=== PATIENT | male | born 1985 | race Two or more races ===

== ENCOUNTER 2018-06-01 00:14 | Emergency (ER) | payer BC ==
[~2018-06-01] VITALS: Ht 182.9 cm; Wt 86.2 kg
[2018-06-01 00:26] VITALS: BP 141/98
--- NOTE | 2018-06-01 00:33 | Emergency Room Report ---
History of Present Illness General Chief Complaint: Abdominal Pain Source: Patient Present Illness HPI Is a 32-year-old male with no past medical history. He presents with chief complaint of nausea vomiting diarrhea. Onset this afternoon. Vomiting is nonbloody nonbilious. Diarrhea is watery. Onset was acute and was severe. Better now. [place] dehydrated and dizzy. He denies any other complaint. Pain is crampy in nature. Better now. Allergies: Coded Allergies: No Known Allergies (Unverified , 06/01/18) Patient History Past Medical History: none, see triage record, old chart reviewed Past Surgical History: none Pertinent Family History: none Social History: Denies: smoking Immunizations: other Reviewed Nursing Documentation: PMH: Agreed; PSxH: Agreed Nursing Documentation-PMH Past Medical History: No History, Except For Hx Hypertension: Yes Review of Systems Eye: Denies: eye pain, blurred vision ENT: Denies: ear pain, nose congestion, throat swelling Respiratory: Denies: cough, shortness of breath Cardiovascular: Denies: chest pain, palpitations Gastrointestinal: Reports: abdominal pain, diarrhea, nausea, vomiting Musculoskeletal: Denies: back pain, joint pain Skin: Denies: rash Neurological: Denies: headache, numbness Endocrine: Denies: increased thirst, increased urine Hematologic/Lymphatic: Denies: easy bruising All Other Systems: negative except mentioned in HPI Physical Exam Vital Signs Date Time Temp Pulse Resp B/P (MAP) Pulse Ox O2 Delivery O2 Flow Rate FiO2 06/01/18 00:21 99.0 141 16 142/88 95 Room Air vitals with tachycardia. Sp02 EP Interpretation: reviewed, normal General Appearance: well appearing, no apparent distress, alert Head: normocephalic, atraumatic Eyes: bilateral eye PERRL, bilateral eye EOMI ENT: hearing grossly normal, normal pharynx Neck: full range of motion, supple, no meningismus Respiratory: chest non-tender, lungs clear, normal breath sounds Cardiovascular #1: regular rate, rhythm, no murmur, tachycardia - Heart rate 120s Gastrointestinal: normal bowel sounds, non tender, no mass, no organomegaly, no bruit, non-distended Musculoskeletal: back normal, gait/station normal, normal range of motion Psychiatric: mood/affect normal Skin: warm/dry Medical Decision Making Diagnostic Impression: Primary Impression: Abdominal pain Qualified Codes: R10.84 - Generalized abdominal pain Additional Impression: Nausea vomiting and diarrhea ER Course Patient with nausea vomiting and diarrhea. Most likely a gastroenteritis. No evidence of acute abdomen. No evidence of obstruction. Patient is pain-free now. We'll discharge home. Heart rate down to 100 after IV fluid. Lab Results Impression labs unremarkable Last Vital Signs Date Time Temp Pulse Resp B/P (MAP) Pulse Ox O2 Delivery O2 Flow Rate FiO2 06/01/18 00:21 99.0 141 16 142/88 95 Room Air Status: improved Disposition: HOME, SELF-CARE Condition: Stable Scripts Ondansetron (Zofran) 4 Mg Tablet 4 MG ORAL Q6H PRN for Nausea & Vomiting, #5 TAB 0 Refills Prov: Maikol Aldana MD 06/01/18 Additional Instructions: Advance diet as tolerated. Follow-up with your Dr. in 2 to 3 days if not better. Return if worse. Maikol Aldana MD Jun 01, 2018 00:33
[2018-06-01] MEDS ORDERED: Ketorolac 30mg Inj IV ONE (00:45)
[2018-06-01 00:59] LABS: HEMATOCRIT 53.3 % (42.0-52.0); HEMOGLOBIN 17.9 G/DL (14.2-18.0); MEAN CORPUSCULAR VOLUME 86 FL (80-99); PLATELET COUNT 322 K/UL (150-450); RED BLOOD COUNT 6.22 M/UL (4.70-6.10); RED CELL DISTRIBUTION WIDTH 11.4 % (11.6-14.8); WHITE BLOOD COUNT 12.3 K/UL (4.8-10.8)
[2018-06-01 01:07] LABS: ANION GAP 13 mmol/L (5-15); BLOOD UREA NITROGEN 19 mg/dL (7-18); CARBON DIOXIDE 24 MMOL/L (21-32); CHLORIDE 104 MMOL/L (98-107); CREATININE 1.2 MG/DL (0.55-1.30); POTASSIUM 3.6 MMOL/L (3.5-5.1); SODIUM 141 MMOL/L (136-145)
[2018-06-01] MEDS ORDERED: ZOFRAN4 MG ORAL (01:31)
[2018-06-01 01:40] VITALS: BP 132/91
[2018-06-01 01:49] VITALS: BP 132/91
== END 2018-06-01 01:49 | disposition home or self-care (01) ==
LOC: EMR 00:40
DX: R11.2 Nausea with vomiting, unspecified (principal); R10.84 Generalized abdominal pain; R19.7 Diarrhea, unspecified; I10 Essential (primary) hypertension
CPT/HCPCS: 36415; 80048; 85025; 96361; 96374; 96375; 99284; J1885; J2405